=== PATIENT | female | born 1995 | race Caucasian/White ===

== ENCOUNTER → 2017-04-26 | Emergency (ER) | payer OTHER ==
[~2017-04-26] VITALS: Ht 170.2 cm; Wt 64.4 kg
== END | disposition home or self-care (01) ==
LOC: ER 13:20
DX: N93.8 Other specified abnormal uterine and vaginal bleeding (principal); R10.2 Pelvic and perineal pain

== ENCOUNTER 2024-03-15 10:37 | Emergency (ER) | payer OTHER ==
[~2024-03-15] VITALS: Ht 177.8 cm; Wt 72.6 kg
[2024-03-15] MEDS ORDERED: ACETAMINOPHEN 500 MG GEL..CAP PO ONE (11:45)
== END 2024-03-15 12:28 | disposition home or self-care (01) ==
LOC: ER 10:39
DX: R53.81 Other malaise (principal); R68.89 Other general symptoms and signs; Z20.822 Contact with and (suspected) exposure to COVID-19

== ENCOUNTER 2024-07-12 20:01 | Emergency (ER) | payer OTHER ==
[~2024-07-12] VITALS: Ht 170.2 cm; Wt 81.6 kg
[2024-07-12 21:46] VITALS: BP 116/80; O2SAT 96
[2024-07-12] MEDS ORDERED: GUAIFENESIN/DEXTROMETHORPHAN 100MG/10ML BLIST.PACK PO ONE (22:45)
[2024-07-12] MEDS ORDERED: GUAIFEN/DEXTROMETHORPHAN/PE 10 ML BLIST.PACK PO ONE (22:48)
[2024-07-12 23:21] LABS: HEMATOCRIT 30.1 % (36.0-45.00); HEMOGLOBIN 9.7 g/dL (12.0-15.00); MEAN CELL VOLUME 75.1 fL (80.00-100.00); MEAN CORPUSCULAR HEMOGLOBIN 24.2 pg (27.00-32.0); MEAN CORPUSCULAR HGB CONC 32.2 g/dl (32.0-36.0); PLATELET COUNT 288 K/uL (150-450); RED BLOOD COUNT 4.01 M/uL (4.00-6.00)
[2024-07-13] MEDS ORDERED: GILTUSS HONEY118 ML PO (00:04)
== END 2024-07-13 01:05 | disposition home or self-care (01) ==
LOC: ER 20:02
PROVIDERS: Preventive Medicine Public Health & General Preventive Medicine
DX: O26.893 Other specified pregnancy related conditions, third trimester (principal); J00 Acute nasopharyngitis [common cold]; Z3A.31 31 weeks gestation of pregnancy; Z20.822 Contact with and (suspected) exposure to COVID-19

== ENCOUNTER 2024-09-02 14:00 | Inpatient (IN) | payer OTHER ==
[~2024-09-02] VITALS: Ht 172.7 cm; Wt 87.1 kg
[~2024-09-02 14:00] MED LIST: GILTUSS HONEY118 ML PO
[2024-09-05] VITALS (8 sets, daily range): BP systolic 106–142; BP diastolic 61–84
[2024-09-05] MEDS ORDERED: PRENATAL TABLE1 EAC1 (05:55)
[2024-09-05] MEDS ORDERED: IRON325 MG (05:55)
[2024-09-05] MEDS ORDERED: RINGERS SOLUTION,LACTATED 1,000 ML IV SCH (06:00)
[2024-09-05] MEDS ORDERED: LIDOCAINE HCL 1% 10ML VIAL ONE (06:19)
[2024-09-05] MEDS ORDERED: ERYTHROMYCIN BASE OPHT 1GM EACH TUBE OP ONE (06:19)
[2024-09-05] MEDS ORDERED: CHLORHEXIDINE GLUCONATE 120 ML BOTTLE TOP ONE (06:19)
[2024-09-05] MEDS ORDERED: OXYTOCIN 20 UNITS/1000ML RL PIGGYBAG IV ONE (06:19)
[2024-09-05 07:25] LABS: BASO % 0.2 % (0.1-1.2); EOS # 0.02 (0.04-0.54); EOS % 0.2 % (0.7-7.0); HEMOGLOBIN 10.6 g/dL (11.2-15.7); LYMPH # 2.28 (1.18-3.74); LYMPH % 20.2 % (19.3-53.1); MEAN CORPUSCULAR HEMOGLOBIN 23.1 pg (25.6-32.2); MONO # 0.43 (0.24-0.82); MONO % 3.8 % (4.7-12.5); NEUT # 8.49 (1.56-6.13); NEUT % 75.2 % (34.0-71.1); PLATELET COUNT 238 K/uL (163-369); RED BLOOD COUNT 4.59 M/uL (3.93-5.22); RED CELL DISTRIBUTION WIDTH 16.6 % (11.6-14.4)
[2024-09-05 07:45] LABS: INR < 0.93; PARTIAL THROMBOPLASTIN TIME 27.4 SECONDS (22.0-34.0); PROTHROMBIN TIME 10.1 SECONDS (9.0-11.5)
[2024-09-05] MEDS ORDERED: IBUprofen 400 MG TABLET PO PRN (08:00)
[2024-09-05] MEDS ORDERED: CHLORHEXIDINE GLUCONATE 120 ML BOTTLE TOP SCH (08:00)
[2024-09-05] MEDS ORDERED: OXYTOCIN 1,000 ML IV SCH (08:00)
[2024-09-05 08:06] LABS: ALBUMIN 2.9 gm/dL (3.4-5.0); BILIRUBIN TOTAL 0.24 mg/dL (0.3-1.2); CALCIUM 9.3 mg/dL (8.5-10.1); CREATININE SERUM 0.68 mg/dL (0.55-1.02); GFR 104.59; GLOBULINA 4.2 G/DL (2.4-3.5); POTASSIUM 4.45 mEq/L (3.5-5.1); TOTAL PROTEIN 7.1 gm/dL (6.4-8.2)
[2024-09-05] MEDS ORDERED: BENZOCAINE/MENTHOL 90 ML BOTTLE TOP SCH (09:00)
[2024-09-06 00:12] VITALS: BP 101/68
[2024-09-06 06:28] LABS: BASO % 0.3 % (0.1-1.2); EOS # 0.04 (0.04-0.54); EOS % 0.3 % (0.7-7.0); LYMPH # 3.44 (1.18-3.74); LYMPH % 29.6 % (19.3-53.1); MEAN CORPUSCULAR HEMOGLOBIN 23.6 pg (25.6-32.2); MONO # 1.04 (0.24-0.82); MONO % 8.9 % (4.7-12.5); NEUT # 7.03 (1.56-6.13); NEUT % 60.5 % (34.0-71.1); PLATELET COUNT 210 K/uL (163-369); RED BLOOD COUNT 3.35 M/uL (3.93-5.22); RED CELL DISTRIBUTION WIDTH 16.5 % (11.6-14.4)
[2024-09-06 07:02] LABS: HEMOGLOBIN 7.9 g/dL (11.2-15.7)
[2024-09-06 08:52] VITALS: BP 112/73
[2024-09-06 12:46] LABS: BASO % 0.3 % (0.1-1.2); EOS # 0.04 (0.04-0.54); EOS % 0.3 % (0.7-7.0); LYMPH # 2.92 (1.18-3.74); LYMPH % 22.5 % (19.3-53.1); MEAN CORPUSCULAR HEMOGLOBIN 23.2 pg (25.6-32.2); MONO # 1.07 (0.24-0.82); MONO % 8.2 % (4.7-12.5); NEUT # 8.87 (1.56-6.13); NEUT % 68.2 % (34.0-71.1); PLATELET COUNT 215 K/uL (163-369); RED BLOOD COUNT 3.67 M/uL (3.93-5.22); RED CELL DISTRIBUTION WIDTH 16.8 % (11.6-14.4)
[2024-09-06 12:47] LABS: HEMATOCRIT 26.4 % (34.1-44.9); HEMOGLOBIN 8.5 g/dL (11.2-15.7)
[2024-09-06 15:45] VITALS: BP 118/80
[2024-09-06 20:21] VITALS: BP 109/74
[2024-09-07 00:22] VITALS: BP 99/66
[2024-09-07 05:00] VITALS: BP 126/77
[2024-09-07 08:09] VITALS: BP 110/76
== END 2024-09-07 13:35 | disposition home or self-care (01) | DRG 807 ==
LOC: OB/GYN 09-05 05:44 → LDR 09-05 05:44 → OB/GYN 09-05 08:23
PROVIDERS: Obstetrics & Gynecology; ADMIT Obstetrics & Gynecology Maternal & Fetal Medicine; ATTEND Obstetrics & Gynecology Maternal & Fetal Medicine
PROC: 10E0XZZ Delivery of Products of Conception, External Approach (ICD-10-PCS; principal; 2024-09-05)
PROC: 0KQM0ZZ Repair Perineum Muscle, Open Approach (ICD-10-PCS; 2024-09-05)
PROC: 4A1HXCZ Monitoring of Products of Conception, Cardiac Rate, External Approach (ICD-10-PCS; 2024-09-05)
DX: O70.1 Second degree perineal laceration during delivery (principal); Z37.0 Single live birth; Z3A.39 39 weeks gestation of pregnancy